=== PATIENT | female | born 1985 | race Caucasian/White ===

== ENCOUNTER → 2016-10-26 | Outpatient (CLI) | payer BC ==
--- NOTE | 2016-10-26 18:43 | VAS ---
Ultrasound right lower extremity venous Doppler Indication: Right lower leg pain and swelling. Evaluate for DVT. Technique: Dynamic grayscale, color spectral Doppler imaging through the right lower extremity venou s system with compression techniques. Findings: The right common femoral vein, superficial femoral vein throughout its length and poplitea l vein are patent compressible with normal respiratory phasicity. Impression: No acute right lower extremity deep vein thrombosis. Reported By:
== END ==
LOC: RAD 17:38
PROVIDERS: ATTEND Internal Medicine
DX: R60.0 Localized edema (principal); M79.604 Pain in right leg
CPT/HCPCS: 93971